=== PATIENT | male | born 1960 | race Caucasian/White ===

== ENCOUNTER 2020-11-28 11:48 | Emergency (ER) | payer MEDICAID ==
[~2020-11-28] VITALS: Ht 160 cm; Wt 69.4 kg
[~2020-11-28 11:48] MED LIST: ACET-2605 PO; BENA20TA9 PO; GUAI120S2 PO; PRED20TA PO
--- NOTE | 2020-11-28 12:53 | NUR ---
Dr Wong at the bedside for MSE.
[2020-11-28 14:28] VITALS: BP 123/65
--- NOTE | 2020-11-28 14:29 | NUR ---
Patient discharged to home in stable condition. Written and verbal after care instructions given. Patient verbalizes understanding of instructions. Stressed follow up or return to ER for worsening s/s.
== END 2020-11-28 14:29 | disposition home or self-care (01) ==
LOC: ER 11:48
DX: S92.352A Displaced fracture of fifth metatarsal bone, left foot, initial encounter for closed fracture (principal); W17.89XA Other fall from one level to another, initial encounter; Y92.89 Other specified places as the place of occurrence of the external cause; M19.012 Primary osteoarthritis, left shoulder; Z83.3 Family history of diabetes mellitus; Z82.49 Family history of ischemic heart disease and other diseases of the circulatory system; Z88.0 Allergy status to penicillin; I10 Essential (primary) hypertension; E11.9 Type 2 diabetes mellitus without complications; Z79.899 Other long term (current) drug therapy; M25.512 Pain in left shoulder; M47.896 Other spondylosis, lumbar region; M47.897 Other spondylosis, lumbosacral region
CPT/HCPCS: 72100; 73030; 73630; 93005; A4663